=== PATIENT | male | born 1990 | race Caucasian/White ===

== ENCOUNTER → 2017-07-05 | Outpatient (CLI) | payer BC ==
[~2017-07-05] MED LIST: FLEXERIL10 MG PO; MOBIC15 MG PO; PROVENTIL OR V6.7 GM INH; TYLENOL325 MG PO; ZYRTEC10 M3 PO
[2017-07-05 11:05] LABS: ALBUMIN 3.9 gm/dL (3.5-5.0); ALK PHOS 92 IU/L (33-138); ALT 46 IU/L (12-78); ANION GAP 8.9 (10.0-19.0); AST 27 IU/L (10-40); BLOOD UREA NITROGEN 6 mg/dL (6-24); CALCIUM 8.4 mg/dL (8.5-10.5); CHLORIDE 109 mMol/L (96-110); CO2 27 mMol/L (22-32); CREATININE 0.8 mg/dL (0.6-1.3); POTASSIUM 3.9 mMol/L (3.7-5.1); SODIUM 141 mMol/L (135-145); TOTAL BILIRUBIN 1.3 mg/dL (0.0-1.5); TOTAL PROTEIN 7.6 g/dL (6.0-8.4)
== END | disposition disaster alternative care site (69) ==
LOC: GLAB 10:21
PROVIDERS: Internal Medicine Infectious Disease
DX: B20 Human immunodeficiency virus [HIV] disease (principal)